=== PATIENT | male | born 1990 | race Caucasian/White ===

== ENCOUNTER 2019-09-24 12:23 | Emergency (ER) | payer OTHER ==
[~2019-09-24] VITALS: Ht 182.9 cm; Wt 108.9 kg
[~2019-09-24 12:23] MED LIST: CIPR500 PO; HYDACE5 PO; OXYACE5T PO; PHENA100 PO; SULTRIDS PO
[2019-09-24] MEDS ORDERED: IBUP400 PO (13:09)
== END 2019-09-24 13:18 | disposition home or self-care (01) ==
LOC: ER 12:23
DX: S69.92XA Unspecified injury of left wrist, hand and finger(s), initial encounter (principal); S69.91XA Unspecified injury of right wrist, hand and finger(s), initial encounter; F17.200 Nicotine dependence, unspecified, uncomplicated; X50.1XXA Overexertion from prolonged static or awkward postures, initial encounter
CPT/HCPCS: 29125; 73110; 73130; 99283-25

== ENCOUNTER 2022-05-28 15:05 | Emergency (ER) | payer OTHER ==
[~2022-05-28] VITALS: Ht 180.3 cm; Wt 99.8 kg
[~2022-05-28 15:05] MED LIST changes: +IBUP400 PO
[2022-05-28] MEDS ORDERED: CEPH500 PO (15:41)
[2022-05-28] MEDS ORDERED: IBUP800 PO (15:41)
== END 2022-05-28 15:57 | disposition home or self-care (01) ==
LOC: ER 15:05
DX: L03.115 Cellulitis of right lower limb (principal); F17.200 Nicotine dependence, unspecified, uncomplicated
CPT/HCPCS: 99283; A9270